=== PATIENT | female | born 1960 | race Caucasian/White ===

== ENCOUNTER → 2017-10-09 | Outpatient (CLI) | payer OTHER | END | disposition home or self-care (01) | LOC: HKI 13:44 | DX: M48.54XD Collapsed vertebra, not elsewhere classified, thoracic region, subsequent encounter for fracture with routine healing (principal) | CPT/HCPCS: 72070 ==

== ENCOUNTER → 2017-10-21 | Outpatient (CLI) | payer OTHER | END | disposition home or self-care (01) | LOC: HKI 13:11 | DX: S72.001D Fracture of unspecified part of neck of right femur, subsequent encounter for closed fracture with routine healing (principal); X58.XXXD Exposure to other specified factors, subsequent encounter | CPT/HCPCS: 73502 ==